=== PATIENT | female | born 1980 | race Caucasian/White ===

== ENCOUNTER 2016-08-04 22:43 | Inpatient (IN) | payer OTHER ==
--- NOTE | ~2016-08-04 | CR63 ---
[facility] A Service of [facility] RADIOLOGY TEXT RESULTS PATIENT: FLORIAN LAO LOCATION: [place] [address] : [birth year] UNIT #: [id number] AGE: [address]: Dalton Beverly MD SEX: F ORDER DR: [id number] [place] [id number] [place], [place] [address] [id number] I MR#: [id number] Acc #: [id number] NAME: FLORIAN LAO : 1980 SEX: F STUDY DATE/TIME: 08/05/2016 0:51 UNIT: [id number] ROOM: [facility] STUDY DESCRIPTION: CR Chest 2 View Attending Physician: Dalton Beverly M.D. Ordering Physician: Carlos Rizo M.D. Primary Care Physician: No Primary Care Physician MEDICAL IMAGING REPORT This report is preliminary unless electronic signature is present EXAM Two-view chest. INDICATIONS Cough and shortness of air for the past 4 days. PROCEDURE Frontal and lateral views of the chest. COMPARISON None. FINDINGS There is mild cardiomegaly. There is mild diffuse reticulonodular prominence in both lungs. No dense consolidation pleural fluid or pneumothorax. IMPRESSION 1. Diffuse reticulonodular prominence nonspecific. It could represent infectious or inflammatory change or mild edema. 2. Mild cardiomegaly. Dictated by... Artemio Reyes M.D. THIS IS AN ELECTRONICALLY VERIFIED REPORT Artemio Reyes M.D. at 08/05/2016 9:54 PM EED/bd TD: 08/05/2016 12:01 JOB #: [id number] MEDICAL IMAGING REPORT [facility] A Service of [facility] RADIOLOGY TEXT RESULTS PATIENT: FLORIAN LAO LOCATION: [place] [address] : 79 UNIT #: [id number] AGE: [address]: Dalton Beverly MD SEX: F ORDER DR: Page 1 of 1 COPY
--- NOTE | ~2016-08-04 | DS ---
Unit #: [id number] #: [id number] Patient: FLORIAN LAO [id number] [address] [address] [id number] I MR#: [id number] NAME: FLORIAN LAO ROOM: [facility] Age: 36 Sex: F Admission Date: 08/05/2016 : 1980 Discharge Date: 08/05/2016 Attending Physician: Dalton Beverly M.D. Primary Care Physician: No Primary Care Physician DISCHARGE SUMMARY DISPOSITION Please note the patient left AMA. I did not see and evaluate the patient. Please see history and physical for complete details. HOSPITAL COURSE The patient was admitted and placed on telemetry floor. Afterward, upon arriving on the telemetry floor she stated she wished to leave. She was given appropriate paperwork. She was encouraged to stay secondary to associated comorbid conditions. She was counseled extensively by nurses on the floor, but unfortunately the patient stated that she wanted to go home. Overall the patient's prognosis is very poor. Life expectancy likely less than six months. DISCHARGE DIAGNOSES 1. Acute respiratory failure. 2. Pneumonia. 3. IV drug abuse. 4. Questionable metastatic disease seen on CT angiogram chest. DISCHARGE MEDICATIONS Unknown as the patient left AMA. Dictated by... Hope Mosquera/emperatriz TD: 08/07/2016 09:34 JOB #: [id number] DISCHARGE SUMMARY Page 1 of 1 X Dalton Beverly MD X DISCHARGE SUMMARY
--- NOTE | ~2016-08-04 | EKG ---
PATIENT: FLORIAN LAO UNIT #: [id number] Ventricular Rate: 118 BPM Atrial Rate: 118 BPM P-R Interval: 150 ms QRS Duration: 86 ms Q-T Interval: 320 ms QTC Calculation(Bezet): 448 ms P [place]: 50 degrees Calculated R [place]: 47 degrees Calculated T [place]: 31 degrees Diagnosis Line: Sinus tachycardia Diagnosis Line: Otherwise normal ECG Diagnosis Line: No previous ECGs available Diagnosis Line: Confirmed by ELIZABETH SALGADO MD ([id number]) on Diagnosis Line: 08/06/2016 10:45:31 AM INTERPRETING MD: BRAD
--- NOTE | ~2016-08-04 | CT16 ---
[facility] A Service of [facility] RADIOLOGY TEXT RESULTS PATIENT: FLORIAN LAO LOCATION: [facility] 54-01 : [birth year] UNIT #: [id number] AGE: [address]: Dalton Beverly MD SEX: F ORDER DR: [id number] [place] [id number] [facility]. [place], [place] [address] [id number] I MR#: [id number] Acc #: [id number] NAME: FLORIAN LAO : 1980 SEX: F STUDY DATE/TIME: 08/05/2016 3:28 UNIT: [facility] ROOM: [facility] STUDY DESCRIPTION: CT Angio Chest for PE Attending Physician: Dalton Beverly M.D. Ordering Physician: Félix Arevalo Aprn Primary Care Physician: Primary Care Physician No MEDICAL IMAGING REPORT This report is preliminary unless electronic signature is present EXAM CTA chest PE protocol INDICATION Chest pain, shortness of air for the past 4 days. PROCEDURE Contrast-enhanced CTA chest attention on opacification of the pulmonary arteries. Coronal 3-D MIP and sagittal reformatted images reconstructed and submitted. This CT examination was performed with one or more of the following radiation dose reduction techniques: automatic exposure control, adjustment of mA and/or kV according to patient size, and iterative reconstruction. COMPARISON None. FINDINGS Suboptimal opacification of the pulmonary arteries. There is no large central pulmonary embolus. Patchy nodular opacities throughout both lungs right greater than left. There is a 1.5 cm nodule in the right lower lobe. There is bilateral hilar as well as subcarinal adenopathy. Index right hilar node measures 2.8 cm. Nonspecific prominent upper abdominal nodes with a periceliac node measuring 1.6 cm in short axis dimension. No aggressive appearing bone lesion. IMPRESSION 1. Suboptimal contrast bolus but no large central pulmonary embolus. 2. 1.5 cm nodule right lower lobe. It is nonspecific but suspicious. Consider a PET scan. 3. Interstitial and nodular prominence in both lungs right greater than left is nonspecific but could represent metastatic disease. There is [facility] A Service of [facility] RADIOLOGY TEXT RESULTS PATIENT: FLORIAN LAO LOCATION: [facility] [id number] : [birth year] UNIT #: [id number] AGE: [address]: Dalton Beverly MD SEX: F ORDER DR: also prominent hilar and mediastinal adenopathy. Consider PET scan to evaluate for disease activity. 4. Prominent lymph nodes in the upper abdomen, nonspecific but could be evaluated as well. Correlate with any known relevant history or previous imaging. Dictated by... Artemio Reyes M.D. THIS IS AN ELECTRONICALLY VERIFIED REPORT Artemio Reyes M.D. at 08/05/2016 9:54 PM NASIM/thalia TD: 08/05/2016 12:27 JOB #: [id number] MEDICAL IMAGING REPORT Page 1 of 1 COPY
--- NOTE | ~2016-08-04 | HP ---
Unit #: [id number] #: [id number] Patient: FLORIAN LAO [id number] [address] [place], [place] [address] [id number] I MR#: [id number] NAME: FLORIAN LAO ROOM: [id number] Age: 36 Sex: F Admission Date: 08/05/2016 : 1980 Attending Physician: Saniya Dang M.D. Primary Care Physician: No Primary Care Physician HISTORY AND PHYSICAL CHIEF COMPLAINT Pneumonia and mild respiratory failure. HISTORY This 36-year-old female with hepatitis C and asthma is admitted for pneumonia and respiratory failure. The patient tripped and fell four days ago onto her chest. She has developed fairly significant anterior chest pain since that time. Then began to experience a deep cough productive of villeda sputum, fevers, and sweats. Mild ankle edema bilaterally. Patient states that she has been increasingly short of breath with bronchospasm as well. She presented to this emergency department late last evening with a low-grade temperature and mildly tachycardic. Chest x-ray showed diffused reticulonodular opacities. Therefore, a CTA was performed revealing a 1.5 cm right lower lobe nodule along with interstitial and nodular opacities bilaterally and adenopathy. Patient was given morphine, oxygen, Zofran, Tylenol, and IV fluids. On examination, she had significant bronchospasm. PAST MEDICAL HISTORY 1. Hepatitis C. 2. Asthma. 3. Cholecystectomy. 4. Tonsillectomy. 5. Myringotomy tubes. ALLERGIES To penicillin causing hives. HOME MEDICATIONS None. FAMILY HISTORY CAD. SOCIAL HISTORY The patient lives with her mother. She has been smoking 1 pack per day of tobacco since age 11. Does not drink alcohol. Denies any possibility of . Previously was using IV drugs, but has not used IV drugs since 04/16/2016. REVIEW OF SYSTEMS Somewhat difficult to obtain as patient tends back to sleep and mother gives most of the answers. Unit #: [id number] #: [id number] Patient: FLORIAN LAO PHYSICAL EXAMINATION GENERAL APPEARANCE: Somnolent, but arousable, obese, 36-year-old female. VITAL SIGNS: Temperature 100.4, pulse 114, respirations 20, blood pressure 139/92, and O2 saturation 90% on room air. HEENT: Eyes: PERRLA. Extraocular muscles are intact. Pharynx: Dry mucosal membranes. NECK: Supple without adenopathy or thyromegaly. CHEST: Reveals expiratory wheezes bilaterally. There is reproducible anterior chest wall tenderness with palpation. ABDOMEN: Bowels sounds are present. No hepatosplenomegaly, tenderness, or masses. EXTREMITIES: With minimal edema. Pedal pulses are present. No splinter hemorrhages noted over the fingernail beds. NEUROLOGIC: The patient is somnolent, but arousable. Cranial nerves are intact. She has equal strength throughout. DIAGNOSTIC STUDIES LABORATORY: Hematocrit is 34.7, white blood count is 22.1, and normal platelet count. Cardiac markers are negative. SMA-12: Glucose 117, sodium 129, chloride 99, calcium 8.3, albumin 3.4, AST 54, ALT 52, alk phos 97, and lactic acid normal. IMAGING: Chest x-ray shows diffuse reticulonodular opacities and mild cardiomegaly. CTA of the chest: No large PE. Right lower lobe 1.5 cm nodule. Interstitial and nodular processes bilaterally along with prominent hilar and mediastinal lymph nodes and prominent lymph nodes in the upper abdomen. PET scan as an outpatient suggested. CARDIOVASCULAR: EKG: Sinus tachycardia, rate 118. ASSESSMENT 1. Clinically, patient has community-acquired pneumonia. 2. Likely asthma/COPD with exacerbation and mild respiratory failure. 3. Chest contusion following a fall with chest pain. 4. Mild leg edema. 5. Prior injectable drug use, but none since 04/2016. 6. Right lower lobe nodule and lymphadenopathy noted. 7. Tobacco abuse. 8. Penicillin allergy. Patient develops hives with penicillin. 9. Morbid obesity. PLANS 1. Levaquin pending cultures. 2. Bronchodilators, steroids, and mucolytics. 3. Pulmonary consultation. 4. DVT and gastritis prophylaxes. 5. Obtain echo. 6. Gentle pain control. 7. PET scan as an outpatient. 8. Incentive spirometry. Dictated by Saniya Dang M.D. Unit #: [id number] #: [id number] Patient: FLORIAN LAO AML/pc TD: 08/05/2016 06:13 JOB #: [id number] HISTORY AND PHYSICAL Page 1 of 1 X Saniya Dang MD HISTORY AND PHYSICAL
[2016-08-05 02:35] LABS: BASOPHIL# 0.1 X10e3 (0-0.3); BASOPHIL% 0.4 % (0-2.5); EOSINOPHIL# 0.3 X10e3 (0-0.7); EOSINOPHIL% 1.4 % (0.0-7.0); HEMATOCRIT 35.7 % (35.0-45.0); HEMOGLOBIN 11.6 gm/dL (12.0-16.0); LYMPHOCYTE# 2.6 X10e3 (1.0-3.5); LYMPHOCYTE% 11.8 % (17.0-45.0); MEAN CELL VOLUME 90.7 FL (83-96); MEAN CORPUSCULAR HEMOGLOBIN 29.4 PG (28-34); MEAN CORPUSCULAR HGB CONC 32.4 g/dL (30-36); MEAN PLATELET VOLUME 8.6 FL (6.5-11.5); MONOCYTE# 1.6 X10e3 (0-1.0); MONOCYTE% 7.4 % (3.0-12.0); NEUTROPHIL# 17.4 X10e3 (1.5-7.1); PLATELET COUNT 320 X10e3 (140-420); RED BLOOD COUNT 3.94 X10e (3.90-5.30); RED CELL DISTRIBUTION WIDTH 15.3 % (11.0-15.5); WHITE BLOOD COUNT 22.1 X10e3 (4.0-10.5)
[2016-08-05 02:36] LABS: DIFF IND YES
[2016-08-05 03:00] LABS: ALBUMIN SERUM 3.4 g/dL (3.5-5.0); BILIRUBIN,TOTAL 1.2 mg/dL (0.2-2.0); CALCIUM SERUM 8.3 mg/dL (8.4-10.2); CREATININE SERUM 0.5 mg/dL (0.6-1.4); GLOM FILT RATE Estimated 123.7 mL/min (>60); POTASSIUM 3.9 mmol/L (3.5-5.1); PROTEIN TOTAL SERUM 7.9 g/dL (6.0-8.3)
[2016-08-05 03:38] LABS: POC - CKMB <1.0 ng/mL (0.0-7.9); POC - TROPONIN <0.05 ng/mL (<=0.05)
[2016-08-05 04:01] LABS: ANISOCYTOSIS SL; PLATELET ESTIMATE NORMAL (NORMAL); POLYCHROMASIA SL; SMUDGE CELLS 2 /100
== END 2016-08-05 10:29 | disposition left against medical advice (07) | DRG 190 ==
LOC: CED 22:43 → CEDOF 08-05 05:40 → CED 08-05 05:52 → C5B 08-05 07:49 → CEDOF 08-05 07:49 → C5B 08-05 07:49
PROVIDERS: Emergency Medicine; Nurse Practitioner Family
PROC: B32TYZZ Computerized Tomography (CT Scan) of Left Pulmonary Artery using Other Contrast (ICD-10-PCS; principal; 2016-08-05)
PROC: B32SYZZ Computerized Tomography (CT Scan) of Right Pulmonary Artery using Other Contrast (ICD-10-PCS; 2016-08-05)
DX: J44.0 Chronic obstructive pulmonary disease with (acute) lower respiratory infection (principal); J18.9 Pneumonia, unspecified organism; J96.00 Acute respiratory failure, unspecified whether with hypoxia or hypercapnia; Z68.41 Body mass index [BMI] 40.0-44.9, adult; J44.1 Chronic obstructive pulmonary disease with (acute) exacerbation; Z88.0 Allergy status to penicillin; E66.01 Morbid (severe) obesity due to excess calories; Z90.49 Acquired absence of other specified parts of digestive tract; F17.210 Nicotine dependence, cigarettes, uncomplicated; Z82.49 Family history of ischemic heart disease and other diseases of the circulatory system; R00.0 Tachycardia, unspecified; J45.909 Unspecified asthma, uncomplicated
CPT/HCPCS: 71020; 71275; 80053; 82553; 82947; 83605; 83880; 84484; 85025; 93005; 94640; 96361; 96374; 96375; 99285; J1650; J1956; J2270; J2405; J2930; Q9967